=== PATIENT | male | born 1985 | race Caucasian/White ===

== ENCOUNTER 2019-05-16 11:24 | Emergency (ER) | payer OTHER ==
[2019-05-16 11:33] VITALS: TEMP 98.3
[2019-05-16] MEDS ORDERED: KETOROLAC 60 MG/2 ML VIAL IM STA (12:15)
[2019-05-16] MEDS ORDERED: DIPH,PERTUS(ACELL)TETVAC-LF 0.5 ML VIAL IM ONE (12:15)
--- NOTE | 2019-05-16 12:46 | ED ---
General Adult HPI - General Chief complaint: Fall Stated complaint: [facility] - fall, head/arm injury Time Seen by Provider: 05/16/19 11:30 Source: patient, RN notes reviewed Mode of arrival: ambulatory Limitations: no limitations - History of Present Illness Initial comments: This is a 33-year-old male who presents emergency Department after he fell at work yesterday. Patient states he fell into a bunch of wood and metal off of a ladder no more than 6 feet tall. Patient states he did not hit his head or neck he has no headache no numbness or weakness. Patient states he comes in because his forearm on the left is swollen and he hit both knees. Patient states she has full range of motion of all his joints and he has no swelling of the knees but there is some areas of bruising. Patient states he wanted to come in and get worked up and have a record of this injury because it occurred at work. Patient states standing straight with his knee in complete extension does feel very tight and it's uncomfortable. Patient states she does have some knee issues in the right knee from the past but this tension with full extension is new. - Related Data Previous Rx's Medication Instructions Recorded Ketorolac [Toradol] 10 mg PO Q6HR #15 tab 05/16/19 Allergies Allergy/AdvReac Type Severity Reaction Status Date / Time cefaclor [From Ceclor] Allergy Unknown Verified 05/16/19 11:51 Childhood cephalexin [From Keflex] Allergy Unknown Verified 05/16/19 11:51 Childhood Review of Systems ROS Statement: Those systems with pertinent positive or pertinent negative responses have been documented in the HPI. ROS Other: All systems not noted in ROS Statement are negative. Past Medical History Past Medical History: No Reported History History of Any Multi-Drug Resistant Organisms: None Reported Past Surgical History: No Surgical Hx Reported Past Psychological History: No Psychological Hx Reported Smoking Status: Current every day smoker Past Alcohol Use History: Occasional Past Drug Use History: Marijuana General Exam - General Exam Comments Initial Comments: GENERAL: Patient is well-developed and well-nourished. Patient is nontoxic and well- hydrated and is in mild distress. ENT: Neck is soft and supple. No significant lymphadenopathy is noted. Oropharynx is clear. Moist mucous membranes. Neck has full range of motion without eliciting any pain. EYES: The sclera were anicteric and conjunctiva were pink and moist. Extraocular movements were intact and pupils were equal round and reactive to light. Eyelids were unremarkable. PULMONARY: Unlabored respirations. Good breath sounds bilaterally. No audible rales rhonchi or wheezing was noted. CARDIOVASCULAR: There is a regular rate and rhythm without any murmurs gallops or rubs. ABDOMEN: Soft and nontender with normal bowel sounds. SKIN: Patient has superficial abrasions to the left forearm NEUROLOGIC: Patient is alert and oriented x3. Cranial nerves II through XII are grossly intact. Motor and sensory are also intact. Normal speech, volume and content. Symmetrical smile. MUSCULOSKELETAL: Normal extremities with adequate strength and full range of motion. Knees were examined thoroughly there are no areas of bony tenderness tenderness however there is a bruise above the left knee that is tender. Patient has no ligament laxity of either knee. Patient has full range of motion of the shoulders elbows and wrists and hands. LYMPHATICS: No significant lymphadenopathy is noted PSYCHIATRIC: Normal psychiatric evaluation. Limitations: no limitations Course Vital Signs 05/16/19 11:29 Temperature 98.3 F Pulse Rate 103 H Respiratory 18 Rate Blood Pressure 137/93 O2 Sat by Pulse 98 Oximetry Medical Decision Making - Medical Decision Making Forearm x-ray shows no acute abnormality. Patient received a tetanus shot emergency department. Disposition Clinical Impression: Forearm contusion, Strain of right knee Disposition: HOME SELF-CARE Condition: Good Instructions (If sedation given, give patient instructions): Knee Pain (ED) Prescriptions: Ketorolac [Toradol] 10 mg PO Q6HR #15 tab Is patient prescribed a controlled substance at d/c from ED?: No Referrals: None,Stated [Primary Care Provider] - 1-2 days Time of Disposition: 13:45
--- NOTE | 2019-05-16 12:53 | XR ---
EXAMINATION TYPE: XR forearm LT DATE OF EXAM: 05/16/2019 CLINICAL HISTORY: Pain after fall injury. TECHNIQUE: Two views of the left forearm are obtained. COMPARISON: None. FINDINGS: There is no acute fracture or dislocation seen in the left radius or ulna. The left elbow and wrist joints appear within normal limits. The overlying soft tissue appears within normal limit s. IMPRESSION: There is no acute fracture or dislocation seen in the left radius or ulna.
[2019-05-16 14:12] VITALS: BP 130/88; PULSE 90; RESP 16
== END 2019-05-16 14:04 | disposition home or self-care (01) ==
LOC: EC 11:24
DX: S86.911A Strain of unspecified muscle(s) and tendon(s) at lower leg level, right leg, initial encounter (principal); S50.12XA Contusion of left forearm, initial encounter; F17.200 Nicotine dependence, unspecified, uncomplicated; Z88.1 Allergy status to other antibiotic agents; W11.XXXA Fall on and from ladder, initial encounter; Y92.69 Other specified industrial and construction area as the place of occurrence of the external cause; Y99.0 Civilian activity done for income or pay
CPT/HCPCS: 73090; 90715; 99283; 90471; 96372; J1885